=== PATIENT | male | born 1970 | race Caucasian/White ===

== ENCOUNTER 2020-11-17 17:44 | Emergency (ER) | payer BC ==
[~2020-11-17] VITALS: Ht 198.1 cm; Wt 100.0 kg
[2020-11-17] MEDS ORDERED: IV RINGERS SOLUTION,LACTATED 1,000 ML IV SCH (18:45)
--- NOTE | 2020-11-17 18:47 | PHYS DOC ---
Past History Past Medical History: Hypertension Alcohol Use: Occasionally General Adult EDM: Chief Complaint: LOWEREXTREMITY INJURY HPI: HPI: ".......... back in June something happened to my right knee... But when I went inside and started training on the treadmill... I got this pain behind my right knee and swelling.... Seem to get better but now it is back.... They did do an x-ray on it but they did not see anything Patient is a 50 year old male who presents with above hx and complaints right knee pain and swelling. Pain appears to be located to the posterior compartment of the knee. Findings somewhat consistent with Chowdhury's cyst. No striations. No heat. Can do straight leg lift. Anterior drawer and posterior drawer fairly stable. Collateral ligaments stable.. Distal neurovascular intact. Patient denies any history of coagulopathy. No recent travel. No history immunosuppression. Does have a history of hypertension. Normally follows with Dr. Dunham. No history of travel. No history of ill contacts. Review of Systems: Review of Systems: Constitutional: Denies fever or chills Eyes: Denies change in visual acuity HENT: Denies nasal congestion or sore throat Respiratory: Denies cough or shortness of breath Cardiovascular: Denies chest pain or edema GI: Denies abdominal pain, nausea, vomiting, bloody stools or diarrhea : Denies dysuria Musculoskeletal: Complains of right knee pain Integument: Denies rash Neurologic: Denies headache, focal weakness or sensory changes Endocrine: Denies polyuria or polydipsia Lymphatic: Denies swollen glands Psychiatric: Denies depression or anxiety Family History: Family History: Noncontributory no history of coagulopathy Current Medications: Current Meds: See nursing for home meds Allergies: Allergies: No known drug allergies Physical Exam: PE: Constitutional: Well developed, well nourished, no acute distress, non-toxic appearance. [] HENT: Normocephalic, atraumatic, bilateral external ears normal, oropharynx moist, no oral exudates, nose normal. [] Eyes: PERRLA, EOMI, conjunctiva normal, no discharge. [] Neck: Normal range of motion, no tenderness, supple, no stridor. [] Cardiovascular:Heart rate regular rhythm, no murmur [] Lungs & Thorax: Bilateral breath sounds clear to auscultation [] Abdomen: Bowel sounds normal, soft, no tenderness, no masses, no pulsatile masses. [] Skin: Warm, dry, no erythema, no rash. [] Back: No tenderness, no CVA tenderness. [] Extremities: Right thigh tenderness, no cyanosis, no clubbing, ROM intact, right knee edema. [] Neurologic: Alert and oriented X 3, normal motor function, normal sensory function, no focal deficits noted. [] Psychologic: Affect anxious , judgement normal, mood normal. [] Current Patient Data: Vital Signs: Vital Signs Date Time Temp Pulse Resp B/P (MAP) Pulse Ox O2 Delivery O2 Flow Rate FiO2 11/17/20 17:47 97.9 70 16 147/78 (101) 99 Room Air EKG: EKG: [] Radiology/Procedures: Radiology/Procedures: [[address] [address] IMAGING REPORT Signed PATIENT: CONRADO MONTES DE OCA JACCOUNT: [id number] : 1970 LOCATION: ER AGE: 50 SEX: M EXAM STATUS: REG ER ORD. PHYSICIAN: RED GARCIA MD REASON: eval dvt vs chowdhury cyst PROCEDURE: VENOUS LOWER EXTREMITY RIGHT Right lower extremity venous ultrasound, : History: Posterior right knee pain, swelling Duplex evaluation including grayscale, color flow and spectral Doppler analysis was performed. The femoral and popliteal veins show no filling defects to suggest DVT. The visualized calf veins are unremarkable. There is a complex hypoechoic fluid collection behind the left knee measuring 8 x 2.7 x 4.2 cm. A ruptured or hemorrhagic Chowdhury cyst could have this pattern. Muscle rupture with bleeding would be possible. MRI could be of benefit. IMPRESSION: 1. There is no sonographic evidence of deep vein thrombosis in the right lower extremity. 2. Complex fluid collection probable hemorrhage behind the knee from a ruptured hemorrhagic Chowdhury's cyst or muscle injury with hemorrhage. Electronically signed by: Chuy Gr MD (11/17/2020 9:51 PM) [id number] DICTATED AND SIGNED BY: CHUY GR MD DATE: 11/17/20 2149 CC: BRANDYN DUNHAM MD; RED GARCIA MD ~MTH0 0 [][place] [address] IMAGING REPORT Signed PATIENT: CONRADO MONTES DE OCAUNT: [id number] : 1970 LOCATION: ER AGE: 50 SEX: M EXAM STATUS: REG ER ORD. PHYSICIAN: RED GARCIA MD REASON: pain, > posterior Crucate PROCEDURE: KNEE RIGHT 4V Right knee 3 views. HISTORY: Pain 3 views were taken of the right knee. There is not evidence of an acute fracture. There is no definite joint effusion. There is no acute osseous abnormality. IMPRESSION: 1. Negative right knee. Electronically signed by: Chuy Gr MD (11/17/2020 7:18 PM) [id number] DICTATED AND SIGNED BY: CHUY GR MD DATE: 11/17/201916 CC: BRANDYN DUNHAM MD; RED GARCIA MD ~MTH0 0 Heart Score: C/O Chest Pain: N/A Risk Factors: Risk Factors: DM, Current or recent (<one month) smoker, HTN, HLP, family histo ry of CAD, obesity. Risk Scores: Score 0 - 3: 2.5% MACE over next 6 weeks - Discharge Home Score 4 - 6: 20.3% MACE over next 6 weeks - Admit for Clinical Observation Score 7 - 10: 72.7% MACE over next 6 weeks - Early Invasive Strategies Course & Med Decision Making: Course & Med Decision Making Pertinent Labs and Imaging studies reviewed. (See chart for details) Take Tylenol and ibuprofen as needed for discomfort. Osmar wrap. Rest. Avoid ballistic activity. May swim. Follow-up with primary care follow-up with orthopedics. Return if any concerns. Impression : 1. Rt. Knee pain 2. Rt. Rupture Chowdhury Cyst vs tendon teaR [] Jeremy Disclaimer: Jeremy Disclaimer: This electronic medical record was generated, in whole or in part, using a voice recognition dictation system. Departure Departure: Referrals: BRANDYN DUNHAM MD (PCP) Jeremy Disclaimer This chart was dictated in whole or in part using Voice Recognition software in a busy, high-work load, and often noisy Emergency Department environment. It may contain unintended and wholly unrecognized errors or omissions. RED GARCIA MD Nov 17, 2020 18:47
[2020-11-17 19:07] LABS: BASO % 0 % (0-3); EOS # 0.2 x10^3/uL (0.0-0.7); EOS % 3 % (0-3); HEMATOCRIT 44.5 % (39.0-53.0); HEMOGLOBIN 14.9 g/dL (13.0-17.5); LYMPH # 1.4 x10^3/uL (1.0-4.8); LYMPH % 18 % (24-48); MEAN CORPUSCULAR HEMOGLOBIN 29 pg (25-35); MEAN CORPUSCULAR HGB CONC 33 g/dL (31-37); MEAN CORPUSCULAR VOLUME 86 fL (79-100); MONO # 0.7 x10^3/uL (0.0-1.1); MONO % 9 % (0-9); NEUT # 5.1 x10^3uL (1.8-7.7); NEUT % 70 % (31-73); PLATELET COUNT 250 x10^3/uL (140-400); RED CELL DISTRIBUTION WIDTH 13.3 % (11.5-14.5); WHITE BLOOD COUNT 7.4 x10^3/uL (4.0-11.0)
[2020-11-17 19:12] LABS: CREATININE 1.2 mg/dL (0.7-1.3); GFR 63.6; POTASSIUM 3.8 mmol/L (3.5-5.1)
--- NOTE | 2020-11-17 19:21 | RAD ---
Right knee 3 views. HISTORY: Pain 3 views were taken of the right knee. There is not evidence of an acute fracture. There is no definit e joint effusion. There is no acute osseous abnormality. IMPRESSION: 1. Negative right knee. Electronically signed by: Chuy Gr MD (11/17/2020 7:18 PM) [id number]
[2020-11-17] MEDS ORDERED: KETOROLAC 30 MG/ML VIAL. IVP ONE (19:45)
[2020-11-17] MEDS ORDERED: APIXABAN 5 MG TABLET. PO SCH (20:15)
--- NOTE | 2020-11-17 21:54 | RAD ---
Right lower extremity venous ultrasound, : History: Posterior right knee pain, swelling Duplex evaluation including grayscale, color flow and spectral Doppler analysis was performed. The f emoral and popliteal veins show no filling defects to suggest DVT. The visualized calf veins are un remarkable. There is a complex hypoechoic fluid collection behind the left knee measuring 8 x 2.7 x 4.2 cm. A rup tured or hemorrhagic Chowdhury cyst could have this pattern. Muscle rupture with bleeding would be possib le. MRI could be of benefit. IMPRESSION: 1. There is no sonographic evidence of deep vein thrombosis in the right lower extremity. 2. Complex fluid collection probable hemorrhage behind the knee from a ruptured hemorrhagic Chowdhury's c yst or muscle injury with hemorrhage. Electronically signed by: Chuy Gr MD (11/17/2020 9:51 PM) [id number]
[2020-11-17 22:29] VITALS: BP 148/94
== END 2020-11-17 22:29 | disposition home or self-care (01) ==
LOC: ER 17:44
DX: M71.21 Synovial cyst of popliteal space [Baker], right knee (principal); M25.561 Pain in right knee; I10 Essential (primary) hypertension; R60.0 Localized edema
CPT/HCPCS: 36415; 73564; 80048; 84484; 85025; 85379; 85610; 85730; 93971; 96361; 96374; 99285; J1885; J7120